=== PATIENT | female | born 1980 | race Caucasian/White ===

== ENCOUNTER 2019-07-18 21:12 | Emergency (ER) | payer MEDICAID ==
[~2019-07-18] VITALS: Ht 170.2 cm; Wt 100.0 kg
[~2019-07-18 21:12] MED LIST: HYDROCODONE-APA1 TAB PO; IBUPROFEN600 MG PO; PERCOCET 5-3251 TAB PO; XANAX0.5 MG PO
[2019-07-18 21:20] VITALS: Ht 170.2 cm; Wt 100.0 kg
[2019-07-18 22:40] LABS: BASOPHILS 0.1 % (0-2); EOSINOPHILS 3.1 % (0-7); HEMATOCRIT 41.3 % (36.0-48.0); HEMOGLOBIN 13.9 g/dL (12-16); IMMATURE GRANULOCYTES 0.2 % (0-5); LYMPHOCYTES 26.8 % (15-50); MCH 31.2 pg (26.0-34.0); MCHC 33.7 g/dL (31.0-37.0); MCV 92.6 fL (80.0-100.0); MEAN PLATELET VOLUME 9.7 fL (7.4-10.4); MONOCYTES 8.5 % (2-11); NEUTROPHILS 61.3 % (40-80); PLATELET COUNT 220 10x3/uL (130-400); RBC 4.46 10x6/uL (4.00-5.40); RDW 12.6 % (11.5-14.5); WBC 12.2 10x3/uL (4.8-10.8)
[2019-07-18 23:04] LABS: CALC OSMOLALITY 283 mosm/kg (275-300); CARBON DIOXIDE 30.4 mmol/L (21.0-32.0); CHLORIDE - SERUM 107 mmol/L (98-107); CREATININE - SERUM 0.9 mg/dL (0.6-1.3); GLUCOSE 65 mg/dL (74-106); POTASSIUM - SERUM 4.1 mmol/L (3.5-5.1); SODIUM 143 mmol/L (136-145); UREA NITROGEN 15 mg/dL (7-18); eGFR NON AFRICAN AMERICAN 75 mL/min (90-120)
[2019-07-18 23:12] LABS: ALBUMIN 3.9 g/dL (3.4-5.0); ALKALINE PHOSPHATASE 86 U/L (46-116); ALT (SGPT) 26 U/L (10-68); AMYLASE - SERUM 44 U/L (25-115); BILIRUBIN - TOTAL 0.13 mg/dL (0.2-1.3); LIPASE 176 U/L (73-393); PROTEIN - SERUM 7.6 g/dL (6.4-8.2)
[2019-07-18 23:17] LABS: TROPONIN-I < 0.017 ng/mL (0.000-0.060)
[2019-07-19 00:20] LABS: APPEARANCE HAZY (CLEAR); BILIRUBIN NEGATIVE (NEGATIVE); COLOR YELLOW (YELLOW); GLUCOSE NEGATIVE (NEGATIVE); KETONE NEGATIVE (NEGATIVE); NITRITE NEGATIVE (NEGATIVE); PROTEIN NEGATIVE (NEGATIVE); UROBILINOGEN NORMAL (NORMAL)
[2019-07-19 00:22] LABS: BACTERIA MODERATE /hpf (NEGATIVE); EPITHELIAL CELLS 0-5 /hpf (0-5); RED CELLS - URINE 0-5 /hpf (0-5); WHITE CELLS - URINE 0-5 /hpf (NEGATIVE)
[2019-07-19] MEDS ORDERED: CYCLOBENZAPRINE10 MG PO (03:30)
[2019-07-19] MEDS ORDERED: IBUPROFEN800 MG PO (03:30)
[2019-07-19] MEDS ORDERED: ACETAMINOPHEN500 M1 PO (03:30)
[2019-07-19 03:51] VITALS: BP 151/90
== END 2019-07-19 03:53 | disposition home or self-care (01) ==
LOC: D.ER 21:12
PROVIDERS: Family Medicine
DX: N83.202 Unspecified ovarian cyst, left side (principal); R10.9 Unspecified abdominal pain

== ENCOUNTER 2021-01-10 07:49 | Emergency (ER) | payer BC ==
[~2021-01-10] VITALS: Ht 170.2 cm; Wt 104.5 kg
[~2021-01-10 07:49] MED LIST changes: +ACETAMINOPHEN500 M1 PO; +CYCLOBENZAPRINE10 MG PO; +IBUPROFEN800 MG PO; +NORCO 7.5-3251 EACH GT; +VOLTAREN75 MG PO
[2021-01-10 07:56] VITALS: BP 183/102; Ht 170.2 cm; Wt 104.5 kg
[2021-01-10 08:29] LABS: BASOPHILS 0.2 % (0-2); EOSINOPHILS 5.4 % (0-7); HEMATOCRIT 42.6 % (36.0-48.0); HEMOGLOBIN 14.3 g/dL (12-16); IMMATURE GRANULOCYTES 0.4 % (0-5); LYMPHOCYTE ABS# 2.54 10x3/uL (1.18-3.74); LYMPHOCYTES 31.2 % (15-50); MCH 30.1 pg (26.0-34.0); MCHC 33.6 g/dL (31.0-37.0); MCV 89.7 fL (80.0-100.0); MONOCYTES 8.5 % (2-11); NEUTROPHIL ABS# 4.42 10x3/uL (1.56-6.13); NEUTROPHILS 54.3 % (40-80); RBC 4.75 10x6/uL (4.00-5.40); RDW 12.7 % (11.5-14.5); WBC 8.1 10x3/uL (4.8-10.8)
[2021-01-10 08:35] LABS: PLATELET COUNT 275 10x3/uL (130-400)
[2021-01-10 08:37] LABS: HCG URINE NEGATIVE (NEGATIVE)
[2021-01-10 08:40] LABS: CALC OSMOLALITY 281 mosm/kg (275-300); CALCIUM 9.5 mg/dL (8.5-10.1); CARBON DIOXIDE 25.3 mmol/L (21.0-32.0); CHLORIDE - SERUM 105 mmol/L (98-107); CREATININE - SERUM 0.8 mg/dL (0.6-1.3); GLUCOSE 125 mg/dL (74-106); POTASSIUM - SERUM 4.1 mmol/L (3.5-5.1); SODIUM 140 mmol/L (136-145); UREA NITROGEN 17 mg/dL (7-18); eGFR NON AFRICAN AMERICAN 85 mL/min (90-120)
[2021-01-10 08:50] LABS: ALBUMIN 3.7 g/dL (3.4-5.0); ALKALINE PHOSPHATASE 95 U/L (30-120); ALT (SGPT) 33 U/L (10-68); AMYLASE - SERUM 44 U/L (25-115); LIPASE 167 U/L (73-393); PROTEIN - SERUM 7.4 g/dL (6.4-8.2)
[2021-01-10 08:51] LABS: TROPONIN-I < 0.017 ng/mL (0.000-0.060)
[2021-01-10 08:58] LABS: BACTERIA FEW HPF (NONE SEEN); BILIRUBIN NEGATIVE (NEGATIVE); KETONE NEGATIVE (NEGATIVE); NITRITE NEGATIVE (NEGATIVE); UROBILINOGEN NORMAL mg/dL (< 2); WHITE CELLS - URINE NONE SEEN HPF (0-4)
[2021-01-10] MEDS ORDERED: IBUPROFEN800 MG PO (09:36)
[2021-01-10] MEDS ORDERED: ACETAMINOPHEN500 M1 PO (09:36)
== END 2021-01-10 10:50 | disposition other institution (70) ==
LOC: D.ER 07:49
PROVIDERS: Family Medicine
DX: R10.11 Right upper quadrant pain (principal)